=== PATIENT | male | born 1970 | race African-American/Black ===

== ENCOUNTER 2017-05-21 19:20 | Observation (INO) | payer OTHER ==
[2017-05-21 22:05] LABS: Hematocrit 45 % (42-52); Hemoglobin 15.9 g/dl (14.0-18.0); Mean Corpuscular HGB Conc 35 g/dl (31-36); Mean Corpuscular Hemoglobin 34 pg (27-31); Mean Corpuscular Volume 96 fL (80-94); Mean Platelet Volume 9 um3 (7.4-10.4); Red Cell Distribution Width 12 % (10.5-15); White Blood Count 10.1 10^3/ul (3.5-10.8)
[2017-05-21 22:12] LABS: Urine Bilirubin Negative (Negative); Urine Glucose Negative (Negative); Urine Nitrite Negative (Negative)
[2017-05-21 22:20] LABS: Albumin 4.6 g/dL (3.2-5.2); BUN/Creatinine Ratio 8.8 (8-20); Calcium 9.5 mg/dL (8.6-10.3); EGFR African American 89.5 (>60); EGFR Non-African American 69.6 (>60); Globulin 2.9 g/dL (2-4); Potassium 3.7 mmol/L (3.5-5.0); Total Bilirubin 0.8 mg/dL (0.2-1.0); Total Protein 7.5 g/dL (6.4-8.9)
[2017-05-21] MEDS ORDERED: Iohexol 350* (CONTRAST) 500 ML MDV IV ONE (23:34)
[2017-05-21] MEDS ORDERED: Acetaminophen TAB* 325 MG PO PRN (23:41)
[2017-05-21] MEDS ORDERED: Melatonin (NF) 3 MG TAB PO PRN (23:42)
[2017-05-21] MEDS ORDERED: Ondansetron INJ* 2 MG/ML VIAL IV PRN (23:42)
[2017-05-21] MEDS ORDERED: Aspirin Low Dose CHEW TAB* 81 MG PO ONE (23:42)
[2017-05-21] MEDS ORDERED: NS 0.9% 1000 ML* 1,000 ML IV SCH (23:45)
--- NOTE | 2017-05-22 | HP ---
H&P (Free Text) History and Physical: PCP: Cong Stiles MD of [place], [place] Date/Time: 05/22/2017 2320 CC: numbness HPI: MR Chet is a 47YO mal HX HTN presents reporting onset Wednesday of a mild/ moderate headache. Wednesday he felt his gait was off and unsteady, but denies focal W/N/T. He was seen at an urgent care and diagnosed with vertigo. he developed N/T of the L side of his head, L arm, and L leg, but not all at the same time, rather migratory. He denies focal weakness, change in speech/ swallow/vision, change in bowel bladder, F/C, cough, congestion, or other issues. He searched online and became concerned after reading about TIA and decided to present to [facility] ED for evaluation. 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 Brother: passed at 49 of pulmonary embolism ROS: as above, otherwise reviewed and all were negative vitals: Vital Signs Temp 36.7 C 05/21/17 19:24 Pulse 71 05/21/17 23:20 Resp 13 05/21/17 23:20 BP 152/96 05/21/17 23:20 Pulse Ox 95 05/21/17 23:20 Intake & Output 05/21/17 05/21/17 05/22/17 11:59 23:59 11:59 Weight 92.533 kg Constitutional: NAD, normally developed, overweight black male HEENM: atraumatic; sclera/conjunctiva: anicteric/clear; hearing: clinically intact; oropharynx: clear, mucosa moist Neck: soft tissue: non-tender; thyroid: normal Pulmonary: clear to auscultation bilaterally, good aeration, no accessory muscle use CV: RR/RR, normal S1S2, no carotid bruit, no jugular venous distention, 2+ B DP/ PT, no edema Abdominal: soft, non-distended, non-tender, no rebound/guarding/rigidity, normoactive bowel sounds, no hepatosplenomegaly or masses, no costovertebral angle tenderness Musculoskeletal: general: grossly intact, no palpable tenderness, negative Sunny 's Integumental: normal appearance and texture of exposed skin Neurological cranial nerves II: visual garcia tested & intact III/IV/: symmetric light reflex, EOMI/PERRLA V: intact facial sensation & mastication VII: intact facial symmetry & eye clench VIII: hearing clinically intact IX/X: symmetric palatal motion, no dysarthria XII: midline tongue protrusion, normal voice articulation motor LUE: 4+/5 proximally, distally, & painter assistant strength RUE: 4+/5 proximally, distally, & painter assistant strength LLE: 4+/5 proximally & distally RLE: 4+/5 proximally & distally coordination finger/nose: intact, symmetric heal/ulloa: intact, symmetric dysdiadochokinesia: none sensory crude touch: intact globally pinprick: intact globally vibration: intact globally proprioception: intact globally DTRs biceps: 2+ B triceps: 2+ B brachioradialis: 2+ B patellar: 2+ B Achilles: 1+ B Babinski: downgoing B Psychiatric orientation: AA&O to PPS affect: calm mood: cooperative eye contact: good content: reliable responses: timely insight: good Testing: Lab Results 05/21/17 05/21/17 05/21/17 Range/Units 21:57 21:57 21:57 WBC 10.1 (3.5-10.8) 10^3/ul RBC 4.70 (4.0-5.4) 10^6/ul Hgb 15.9 (14.0-18.0) g/dl Hct 45 (42-52) % MCV 96 H (80-94) fL MCH 34 H (27-31) pg MCHC 35 (31-36) g/dl RDW 12 (10.5-15) % Plt Count 259 (150-450) 10^3/ul MPV 9 (7.4-10.4) um3 Neut % (Auto) 72.3 (38-83) % Lymph % (Auto) 20.3 L (25-47) % [place] % (Auto) 5.2 (1-9) % Eos % (Auto) 1.4 (0-6) % Baso % (Auto) 0.8 (0-2) % Absolute Neuts (auto) 7.3 (1.5-7.7) 10^3/ul Absolute Lymphs (auto) 2.1 (1.0-4.8) 10^3/ul Absolute Monos (auto) 0.5 (0-0.8) 10^3/ul Absolute Eos (auto) 0.1 (0-0.6) 10^3/ul Absolute Basos (auto) 0.1 (0-0.2) 10^3/ul Absolute Nucleated RBC 0.01 10^3/ul Nucleated RBC % 0.1 INR (Anticoag Therapy) 0.96 (0.89-1.11) APTT 28.4 (26.0-36.3) seconds Sodium 138 (133-145) mmol/L Potassium 3.7 (3.5-5.0) mmol/L Chloride 104 (101-111) mmol/L Carbon Dioxide 28 (22-32) mmol/L Anion Gap 6 (2-11) mmol/L BUN 10 (6-24) mg/dL Creatinine 1.13 (0.67-1.17) mg/dL Est GFR ( Amer) 89.5 (>60) Est GFR (Non-Af Amer) 69.6 (>60) BUN/Creatinine Ratio 8.8 (8-20) Glucose 102 H (70-100) mg/dL Calcium 9.5 (8.6-10.3) mg/dL Total Bilirubin 0.80 (0.2-1.0) mg/dL AST 15 (13-39) U/L ALT 14 (7-52) U/L Alkaline Phosphatase 58 (34-104) U/L Troponin I 0.00 (<0.04) ng/mL Total Protein 7.5 (6.4-8.9) g/dL Albumin 4.6 (3.2-5.2) g/dL Globulin 2.9 (2-4) g/dL Albumin/Globulin Ratio 1.6 (1-3) Urine Color Urine Appearance Urine pH (5-9) Ur Specific [place] (1.010-1.030) Urine Protein (Negative) Urine Ketones (Negative) Urine Blood (Negative) Urine Nitrate (Negative) Urine Bilirubin (Negative) Urine Urobilinogen (Negative) Ur Leukocyte Esterase (Negative) Urine Glucose (Negative) 05/21/17 Range/Units 22:00 WBC (3.5-10.8) 10^3/ul RBC (4.0-5.4) 10^6/ul Hgb (14.0-18.0) g/dl Hct (42-52) % MCV (80-94) fL MCH (27-31) pg MCHC (31-36) g/dl RDW (10.5-15) % Plt Count (150-450) 10^3/ul MPV (7.4-10.4) um3 Neut % (Auto) (38-83) % Lymph % (Auto) (25-47) % [place] % (Auto) (1-9) % Eos % (Auto) (0-6) % Baso % (Auto) (0-2) % Absolute Neuts (auto) (1.5-7.7) 10^3/ul Absolute Lymphs (auto) (1.0-4.8) 10^3/ul Absolute Monos (auto) (0-0.8) 10^3/ul Absolute Eos (auto) (0-0.6) 10^3/ul Absolute Basos (auto) (0-0.2) 10^3/ul Absolute Nucleated RBC 10^3/ul Nucleated RBC % INR (Anticoag Therapy) (0.89-1.11) APTT (26.0-36.3) seconds Sodium (133-145) mmol/L Potassium (3.5-5.0) mmol/L Chloride (101-111) mmol/L Carbon Dioxide (22-32) mmol/L Anion Gap (2-11) mmol/L BUN (6-24) mg/dL Creatinine (0.67-1.17) mg/dL Est GFR ( Amer) (>60) Est GFR (Non-Af Amer) (>60) BUN/Creatinine Ratio (8-20) Glucose (70-100) mg/dL Calcium (8.6-10.3) mg/dL Total Bilirubin (0.2-1.0) mg/dL AST (13-39) U/L ALT (7-52) U/L Alkaline Phosphatase (34-104) U/L Troponin I (<0.04) ng/mL Total Protein (6.4-8.9) g/dL Albumin (3.2-5.2) g/dL Globulin (2-4) g/dL Albumin/Globulin Ratio (1-3) Urine Color Yellow Urine Appearance Clear Urine pH 6.0 (5-9) Ur Specific [place] 1.010 (1.010-1.030) Urine Protein Negative (Negative) Urine Ketones Negative (Negative) Urine Blood Negative (Negative) Urine Nitrate Negative (Negative) Urine Bilirubin Negative (Negative) Urine Urobilinogen Negative (Negative) Ur Leukocyte Esterase Negative (Negative) Urine Glucose Negative (Negative) ECG, personally reviewed: NSR rate 77, no ischemia CT brain WO, personally reviewed: FINDINGS: No detectable infarct. Please note that infarcts less than 6 hours from onset may not be detectable on CT. No hemorrhage. No mass. No edema, shift, or herniation. Osseous structures are intact. CTA head/neck: ordered/pending Impression: 47M presenting with TIA-like symptoms DIAGNOSIS & PLAN Primary concern for TIA : current NIH is zero : telemetry : neurochecks : supplemental oxygen : check lipids in AM : patient to await CTA head/neck result in ED in case need for transfer identified : MRI brain WO in AM for further symptoms vs outpatient if no issues overnight : ECHO in AM for further symptoms or telemetry findings vs outpatient if no issues overnight : add TSH to ED lab draw : supportive care Secondary HTN : monitor, consider amlodipine for control, if indicated Admission Rational: CDU observation for TIA evaluation DVTp: SCDs while in bed Code Status: full HCP:
--- NOTE | 2017-05-22 00:50 | ED ---
Ananda Roman Rebecca, scribed for Miguel Hightower on 05/21/17 at 2112 . Neurological HPI - HPI Summary HPI Summary: Pt is a 47 y/o M who presents to ED c/o L-sided tingling. Starting yesterday, the pt has been experiencing intermittent episodes of L-sided tingling that was previously the entire side of the body though now sx are described as being located in the L temporal region. Pt is unsure of how long episodes last, stating "not long at all" though unable to give an exact length of time. Sx aggravated and alleviated by nothing. Pt additionally notes a MOTA with dizziness 3 days ago which have both resolved. Denies CP, SOB, abdominal pain, sore throat , ear pain. No recent infections. Was evaluated at urgent Care 2 days ago where he was D/C to home with Dx of vertigo without any medications. - History of Current Complaint Chief Complaint: EDNeurologicalDeficit Stated Complaint: NUMBNESS ON LT SIDE Time Seen by Provider: 05/21/17 21:10 Hx Obtained From: Patient Onset/Duration: Still Present Current Severity: None Pain Intensity: 0 Pain Scale Used: 0-10 Numeric Character: Numbness/Tingling - L-sided temporal Aggravating: Nothing Alleviating: Nothing Associated Signs and Symptoms: Positive: Headache - resolved, Dizziness - resolved - Allergy/Home Medications Allergies/Adverse Reactions: Allergies Allergy/AdvReac Type Severity Reaction Status Date / Time No Known Allergies Allergy Verified 05/21/17 19:29 Home Medications: Home Medications Multiple Vitamins W/ Minerals [Multivitamin Adults] 1 tab PO DAILY 05/22/17 [ History Confirmed 05/22/17] PMH/Surg Hx/FS Hx/Imm Hx Endocrine/Hematology History: Denies: Hx Diabetes Cardiovascular History: Reports: Hx Hypertension - Is not on medications - advised to decrease sodium intake Infectious Disease History: No Infectious Disease History: Denies: Traveled Outside the [place] in Last 30 Days - Family History Known Family History: Positive: Hypertension - Social History Alcohol Use: Occasionally Substance Use Type: Reports: None Smoking Status (MU): Never Smoked Tobacco Review of Systems Negative: Sore Throat, Ear Ache Negative: Chest Pain Negative: Shortness Of Breath Negative: Abdominal Pain Neurological: Other - dizziness - resolved Positive: Headache - resolved All Other Systems Reviewed And Are Negative: Yes Physical Exam - Summary Physical Exam Summary: Appearance: Well appearing, no pain distress Skin: warm, dry, reflects adequate perfusion Head/face: normal Eyes: EOMI, FLORINDA ENT: normal Neck: supple, nontender Respiratory: CTA, breath sounds present Cardiovascular: RRR, pulses symmetrical Abdomen: nontender, soft Bowel: present Musculoskeletal: normal, strength/ROM intact Neuro: normal, sensory motor intact, A&Ox3 GCS: 15 Triage Information Reviewed: Yes Vital Signs On Initial Exam: Initial Vitals Temp Pulse Resp BP Pulse Ox 98.1 F 82 14 180/97 98 05/21/17 19:24 05/21/17 19:24 05/21/17 19:24 05/21/17 19:24 05/21/17 19:24 Vital Signs Reviewed: Yes - Cassi Coma Scale Best Eye Response: 4 - Spontaneous Best Motor Response: 6 - Obeys Commands Best Verbal Response: 5 - Oriented Coma Scale Total: 15 Diagnostics - Vital Signs Vital Signs Temp Pulse Resp BP Pulse Ox 05/21/17 21:00 84 18 151/85 94 05/21/17 20:30 78 9 155/87 95 05/21/17 20:00 84 21 153/96 96 05/21/17 19:57 84 20 97 05/21/17 19:55 162/96 05/21/17 19:24 98.1 F 82 14 180/97 98 - Laboratory Result Diagrams: 05/21/17 21:57 05/21/17 21:57 Lab Statement: Any lab studies that have been ordered have been reviewed, and results considered in the medical decision making process. - CT Brain CT CT Interpretation: No Acute Changes - No detectable infarct. Please note that infarcts less than 6 hours frm onset may not be detectable on CT. No hemorrhage. No mass. No edema shift or herniation. Osseous structures are intact. ED physician reviewed radiology report and agrees. CT Interpretation Completed By: Radiologist - EKG 2159 Cardiac Rate: NL - 77 bpm EKG Rhythm: Sinus Rhythm EKG Interpretation: No acute changes NIH Scale - NIH Scale Level of Consciousness: Alert/Keenly Responsive Ask Patient the Month and His/Her Age: Both Correct Ask Pt to Open/Close Eyes and [employer]/Release Non-Paretic Hand: Both Correctly Best Gaze (Only Horizontal Eye Movement): Normal Visual Field Testing: No Visual Loss Facial Paresis-Pt to Smile & Close Eyes or Grimace Symmetry: Normal/Symmetrical Motor Function - Right Arm: No Drift-Holds 10 Seconds Motor Function - Left Arm: No Drift-Holds 10 Seconds Motor Function - Right Leg: No Drift-Holds 10 Seconds Motor Function - Left Leg: No Drift-Holds 10 Seconds Limb Ataxia-Must be out of Proportion to Weakness Present: Absent Sensory (Use Pinprick to Test Arms/Legs/Trunk/Face): Normal Best Language (Describe Picture, Name Items): No Aphasia Dysarthria (Read Several Words): Normal Extinction and Inattention: No Abnormality Total Score: 0 Course/Dx - Course Assessment/Plan: Pt is a 47 y/o M who presents to ED c/o L-sided tingling. Starting yesterday, the pt has been experiencing intermittent episodes of L- sided tingling that was previously the entire side of the body though now sx are described as being located in the L temporal region. Pt is unsure of how long episodes last, stating "not long at all." Pt additionally notes a MOTA with dizziness 3 days ago which have both resolved. Denies CP, SOB, abdominal pain, sore throat, ear pain. No recent infections. Was evaluated at urgent Care 2 days ago where he was D/C to home with Dx of vertigo without any medications. Brain CT reveals no acute findings. EKG is sinus rhythm with no acute changes. Discussed care of pt with Dr. Vallecillo who accepts pt for admission. Pt will be admitted with Dx of TIA. He understands and agrees. Elevated BP noted. - Diagnoses Provider Diagnoses: TIA (transient ischemic attack) - Physician Notifications Discussed Care Of Patient With: Carlos Vallecillo Time Discussed With Above Provider: 00:42 Instructed by Provider To: Other - Accepts pt for admission. Discharge - Discharge Plan Condition: Stable Disposition: ADMITTED TO Health system documentation as recorded by the Ananda marte Rebecca accurately reflects the service I personally performed and the decisions made by me, Miguel Hightower.
[2017-05-22 02:03] LABS: TSH (Thyroid Stimulating Horm) 1.03 mcIU/mL (0.34-5.60)
[2017-05-22 05:54] LABS: EGFR African American 90.4 (>60); EGFR Non-African American 70.3 (>60)
[2017-05-22 05:55] LABS: HDL Cholesterol 35.1 mg/dL
[2017-05-22] MEDS ORDERED: Heparin VIAL(*) 5000 UNITS/ML VIAL (FIVE THOUSAND) SUBCUT SCH (06:00)
[2017-05-22] MEDS ORDERED: Omeprazole CAP* 20 MG PO SCH (06:00)
[2017-05-22 07:32] VITALS: BP 158/96
--- NOTE | 2017-05-22 08:06 | RAD ---
HISTORY: Stroke, TIA, numbness on left side COMPARISONS: None TECHNIQUE: Multiple contiguous axial CT scans were obtained of the head without intravenous contrast. FINDINGS: HEMORRHAGE/INFARCT: There is no hemorrhage or acute infarct. MASSES/SHIFT: There is no mass or shift. EXTRA-AXIAL SPACES: There are no extra-axial fluid collections. SULCI AND VENTRICLES: The sulci and ventricles are normal in size and position for the patient's stated age. Incidentally noted is a cavum septum pellucidum et vergae. CEREBRUM: There are no focal parenchymal abnormalities. BRAINSTEM: There are no focal parenchymal abnormalities. CEREBELLUM: There are no focal parenchymal abnormalities. VESSELS: The vessels are grossly normal. PARANASAL SINUSES: The paranasal sinuses are clear. ORBITS: The orbits are unremarkable. BONES AND SOFT TISSUE: No bone or soft tissue abnormalities are noted. OTHER: None IMPRESSION: NO ACUTE INTRACRANIAL PATHOLOGY.
--- NOTE | 2017-05-22 08:15 | RAD ---
HISTORY: TIA, stroke COMPARISONS: None TECHNIQUE: Multiple contiguous axial CT scans were obtained of the head and neck After the administration of nonionic intravenous contrast timed to the systemic arterial phase of contrast enhancement. Coronal and sagittal multiplanar reformations are submitted for review. Multiple 3-D maximum intensity projection reconstructions are also submitted for review. FINDINGS: CTA NECK: AORTIC ARCH: There is a normal three-vessel branching pattern of the aortic arch. There is no ostial or proximal stenosis of the cephalic great vessels. RIGHT VERTEBRAL ARTERY: The right vertebral artery is patent along its course, without stenosis. LEFT VERTEBRAL ARTERY: The left vertebral artery is patent along its course, without stenosis. DOMINANCE: The right vertebral artery is dominant. RIGHT COMMON CAROTID ARTERY: The right common carotid artery is patent. The right carotid bifurcation occurs at C4-C5 RIGHT INTERNAL CAROTID ARTERY: There is no right internal carotid artery stenosis by NASCET criteria. RIGHT EXTERNAL CAROTID ARTERY: The right external carotid artery is unremarkable. LEFT COMMON CAROTID ARTERY: The left common carotid artery is patent. The left carotid bifurcation occurs at C4-C5 LEFT INTERNAL CAROTID ARTERY: There is no left internal carotid artery stenosis by NASCET criteria. LEFT EXTERNAL CAROTID ARTERY: The left external carotid artery is unremarkable. VENOUS CIRCULATION: The venous system is unremarkable. SALIVARY GLANDS: The parotid glands, submandibular glands, sublingual glands are normal. NASAL CAVITY/NASOPHARYNX: The nasal cavity and nasopharynx are normal. ORAL CAVITY/OROPHARYNX: The oral cavity is obscured by streak artifact from dental amalgam. The visualized oral cavity and oropharynx are unremarkable. LARYNGEAL APPARATUS/HYPOPHARYNX: The laryngeal apparatus and hypopharynx are normal. UPPER AIRWAY/UPPER ESOPHAGUS: The visualized upper airway and esophagus are normal. LUNG APICES: The lung apices are clear. THYROID GLAND: The thyroid gland is normal. LYMPH NODES: There is no lymphadenopathy by size criteria. BONES AND SOFT TISSUES: No bone or soft tissue abnormalities are noted. CTA HEAD: INTRACRANIAL CIRCULATION: There is no aneurysm, vascular malformation, occlusion, or stenosis of the visualized intracranial circulation. The anterior communicating artery complex is clear. Bilateral posterior communicating arteries are identified. VENOUS CIRCULATION: The venous system is unremarkable. PERFUSION: There is no obvious parenchymal perfusion deficit. HEMORRHAGE/INFARCT: There is no hemorrhage or acute infarct. MASSES/SHIFT: There is no mass or shift. EXTRA-AXIAL SPACES: There are no extra-axial fluid collections. SULCI AND VENTRICLES: The sulci and ventricles are normal in size and position for the patient's stated age. Incidentally noted is a cavum septum pellucidum et vergae. CEREBRUM: There are no focal parenchymal abnormalities. BRAINSTEM: There are no focal parenchymal abnormalities. CEREBELLUM: There are no focal parenchymal abnormalities. PARANASAL SINUSES: The paranasal sinuses are clear. ORBITS: The orbits are unremarkable. BONES AND SOFT TISSUE: No bone or soft tissue abnormalities are noted. OTHER: There is no abnormal enhancement. IMPRESSION: 1. NO INTERNAL CAROTID ARTERY STENOSIS BY NASCET CRITERIA. 2. NO ANEURYSM, VASCULAR MALFORMATION, OCCLUSION, OR STENOSIS OF THE VISUALIZED INTRACRANIAL CIRCULATION. CPT II Codes: 3100F
[2017-05-22] MEDS ORDERED: Aspirin EC Low Dose* 81 MG TAB.EC PO SCH (09:00)
[2017-05-22] MEDS ORDERED: Docusate CAP* 100 MG PO SCH (09:00)
[2017-05-23] MEDS ORDERED: Heparin VIAL(*) 5000 UNITS/ML VIAL (FIVE THOUSAND) SUBCUT SCH (06:00)
--- NOTE | 2017-05-23 12:48 | DS ---
AMENDED REPORT NOW INCLUDES COSIGNER DESIGNATION - ESIGNED BEFORE ADJUSTMENT CC: New PCP DISCHARGE SUMMARY: DATE OF ADMISSION: 05/21/17 DATE OF DISCHARGE: 05/22/17 PRIMARY CARE PHYSICIAN: The patient has no primary care doctor at this time. MY ATTENDING WHILE IN THE HOSPITAL: Dr. Nory Patel * (DICTATED BY POONAM BARTHOLOMEW) PRIMARY DISCHARGE DIAGNOSIS: Transient ischemic attack. SECONDARY DISCHARGE DIAGNOSES: 1. Hyperlipidemia. 2. Hypertension. STUDIES DONE WHILE IN THE HOSPITAL: Brain CT read as no acute intracranial pathology. Head CTA read as no internal carotid artery stenosis, no aneurysm, vascular malformation, occlusion, or stenosis in the visualized intracranial circulation. MEDICATIONS ON DISCHARGE: 1. Multivitamin. 2. Aspirin 81 mg p.o. daily. 3. Lipitor 40 mg p.o. daily. 4. Amlodipine 2.5 mg p.o. daily. New medications at discharge: 1. Aspirin 81 mg p.o. daily. 2. Atorvastatin 40 mg p.o. daily. 3. Amlodipine 2.5 mg p.o. daily. HOSPITAL COURSE: This is a brief summary of the hospital course. For more details, please see the admission history and physical from Dr. Carlos Vallecillo from 05/21/17. In brief, the patient is a 47-year-old male with no significant known past medical history, who presented to the ED with 4 days of gait disturbance and 2 days of numbness and tingling on the left side of his head, left arm, and left leg that took a migratory course. There was no weakness, change in speech, or other neurological deficits. The patient was admitted for observation, neuro checks, and medical management. All of the patient's deficits were resolved by the morning. MRI was not available in the hospital today, so the patient was agreed to be discharged and follow up outpatient with the primary care provider to be determined to assess for risk factors such as atrial fibrillation and to have an MRI of his brain. The patient was found to be hyperlipidemic and hypertensive while in the hospital. The patient also had a glucose of 102 when he entered the hospital. It is unclear whether this was fasting or not. The patient had no other abnormalities in his lab work. The patient was found to have a brother who of pulmonary embolism at age 46. PHYSICAL EXAMINATION ON THE DAY OF DISCHARGE: General: The patient is a 47- year- old male, who appears stated age and sitting comfortably in the exam bed. Vital Signs: Temperature 98.6, pulse rate 79, respiratory rate 16, oxygen saturation 99% on room air, blood pressure 150/96. HEENT: Head , normocephalic, atraumatic. Eyes: Sclerae anicteric. No conjunctival injection. Mucous membranes are moist. Pharynx nonerythematous. Neck: Supple , nontender. No lymphadenopathy. No carotid bruit auscultation. Cardiac: Regular rate and rhythm. No clicks, murmurs, gallops, or rubs. Pulse is 2+ bilaterally in the posterior tibial, dorsalis pedis, and radial areas. Respiratory: Clear to auscultation bilaterally. No wheezes, rales, or rhonchi. Good air exchange bilaterally. Abdomen: Soft, nontender, nondistended. Normal bowel sounds present in all 4 quadrants. No abdominal bruits auscultated. No hepatosplenomegaly. Skin: Clean, dry, and intact. Neuro: Alert and oriented x3. Pupils equal, round, and reactive to light. Extraocular movements intact. No sensory deficits on the face. [place] and temporalis muscles contract equal bilaterally. The patient was able to smile, frown, puff out cheeks, and close eyes without me being able open them. Hearing equal bilaterally. Equal elevation of the soft palate. Tongue protrudes to the midline. 5/5 strength with head rotation and shoulder shrug. 5/5 strength in the bilateral proximal and distal muscle groups of the upper and lower extremity. Sensation to light touch intact in the upper and lower extremities. Finger-to- nose performed without difficulty. Gait normal. No dysdiadochokinesis. Reflexes 1+ bilaterally in the biceps, quadriceps, and Achilles tendons. Psychiatric: The patient is pleasant and cooperative. LABORATORY DATA: While in the hospital, white blood cell count 10.1, hemoglobin 15.9, hematocrit 45, MCV 96, MCH 34, platelet count 259. INR 0.96, aPTT 28.4. Sodium 138, potassium 3.7, chloride 104, carbon dioxide 28, anion gap 6, BUN 10, creatinine 1.13, glucose 102, calcium 9.5. AST 15, ALT 14. Troponin I 0.00. Triglycerides 136, cholesterol 222, LDL cholesterol 160, HDL cholesterol 35. TSH 1.03. Urine benign. DISCHARGE PLAN: The patient has most likely had a transient ischemic attack, all of which resolved. The patient will be started on secondary prevention including aspirin daily, Lipitor 40 mg p.o. daily, and amlodipine 2.5 mg p.o. daily. The patient will follow up with his primary care doctor within a week. We will arrange an appointment for him on Wednesday when we are able. The patient should at that point undergo more extensive testing including Holter monitor, echocardiogram, hypercoagulability workup, hemoglobin A1c, and possible MRI of the brain. The patient has lost 18 pounds over the past several months. The patient should continue exercise for weight loss and activity as tolerated. The patient should have a low-fat, low-salt diet. The patient should return to the hospital for any new neurological deficits. TIME SPENT: Approximately 60 minutes was spent on this discharge, 40 of which was spent [id number] with the patient obtaining history and physical and discussing treatment options and explaining diagnoses. POONAM BARTHOLOMEW [id number]/[facility] #: [id number] [place]
== END 2017-05-22 11:15 | disposition home or self-care (01) ==
LOC: ED 19:20 → MEDTELE 23:21
PROVIDERS: ADMIT Hospitalist; ATTEND Internal Medicine
DX: G45.9 Transient cerebral ischemic attack, unspecified (principal); E78.5 Hyperlipidemia, unspecified; I10 Essential (primary) hypertension; R51 Headache; Z79.82 Long term (current) use of aspirin; Z79.899 Other long term (current) drug therapy; R94.31 Abnormal electrocardiogram [ECG] [EKG]
CPT/HCPCS: 36415; 70450; 70496; 70498; 80053; 80061; 81003; 82565; 84443; 84484; 84520; 85025; 85610; 85730; 93005; 96360; 96361; 96372; 99284; A9270-GY; G0378; J1644; Q9967

== ENCOUNTER → 2017-05-27 12:27 | Emergency (ER) | payer OTHER ==
[2017-05-27 16:31] VITALS: BP 164/92
--- NOTE | 2017-05-29 18:26 | ED ---
Dawood Roman Alfonso, scribed for Paulie Oliveira MD on 05/27/17 at 1550 . Complex/Multi-Sys Presentation - HPI Summary HPI Summary: This patient is a 47 year old M presenting to [facility] accompanied by with a chief complaint of left posterior head tingling since last night. The patient rates the pain 0/10 in severity. Symptoms aggravated by nothing. Symptoms alleviated by spontaneous resolution. Patient reports insomnia, anxiety, and dizziness (improved). Patient denies CP, SOB, and palpitations. - History Of Current Complaint Chief Complaint: EDDizziness Time Seen by Provider: 05/27/17 15:29 Hx Obtained From: Patient Onset/Duration: Sudden Onset, Lasting Days - last night, Still Present Timing: Constant Aggravating Factor(s): nothing Alleviating Factor(s): spontaneous resolution Associated Signs And Symptoms: Positive: Other - insomnia, anxiety, and dizziness (improved). Patient denies CP, SOB, and palpitations. - Allergies/Home Medications Allergies/Adverse Reactions: Allergies Allergy/AdvReac Type Severity Reaction Status Date / Time No Known Allergies Allergy Verified 05/21/17 19:29 Home Medications: Home Medications Aspirin EC Low Dose* [Ecotrin EC Low Dose 81 MG*] 81 mg PO DAILY 05/27/17 [ History Confirmed 05/27/17] PMH/Surg Hx/FS Hx/Imm Hx Endocrine/Hematology History: Denies: Hx Diabetes Cardiovascular History: Reports: Hx Hypertension - Is not on medications - advised to decrease sodium intake History: Denies: Hx Renal Disease Sensory History: Denies: Hx Contacts or Glasses, Hx Hearing Aid Opthamlomology History: Denies: Hx Contacts or Glasses - Surgical History Surgery Procedure, Year, and Place: Hernia Repair Infectious Disease History: No Infectious Disease History: Denies: Traveled Outside the [place] in Last 30 Days - Family History Known Family History: Positive: Cardiac Disease - [place] father, Hypertension, Other - Negative CVA - Social History Alcohol Use: Occasionally Substance Use Type: Reports: None Smoking Status (MU): Never Smoked Tobacco Review of Systems Negative: Palpitations, Chest Pain Negative: Shortness Of Breath Neurological: Other - left posterior head tingling, insomnia, anxiety, and dizziness (improved) All Other Systems Reviewed And Are Negative: Yes Physical Exam - Summary Physical Exam Summary: VITAL SIGNS: Reviewed. GENERAL: Patient is a well-developed and nourished male who is lying comfortable in the stretcher. Patient is not in any acute respiratory distress. HEAD AND FACE: No signs of trauma. No ecchymosis, hematomas or skull depressions. No sinus tenderness. EYES: PERRLA, EOMI x 2, No injected conjunctiva, no nystagmus. No photophobia. EARS: Hearing grossly intact. Ear canals and tympanic membranes are within normal limits. MOUTH: Oropharynx within normal limits. NECK: Supple, trachea is midline, no adenopathy, no JVD, no carotid bruit, no c- spine tenderness, neck with full ROM. No meningeal signs, no Kernig's or brudzinskis signs. CHEST: Symmetric, no tenderness at palpation LUNGS: Clear to auscultation bilaterally. No wheezing or crackles. CVS: Regular rate and rhythm, S1 and S2 present, no murmurs or gallops appreciated. ABDOMEN: Soft, non-tender. No signs of distention. No rebound no guarding, and no masses palpated. Bowel sounds are normal. EXTREMITIES: FROM in all major joints, no edema, no cyanosis or clubbing. NEURO: Alert and oriented x 3. No acute neurological deficits. Speech is normal and follows commands. See NIH scale. SKIN: Dry and warm GCS: 15 Triage Information Reviewed: Yes Vital Signs On Initial Exam: Initial Vitals Temp Pulse Resp BP Pulse Ox 98.1 F 98 17 163/118 98 05/27/17 12:32 05/27/17 12:32 05/27/17 12:32 05/27/17 12:32 05/27/17 12:32 Vital Signs Reviewed: Yes Diagnostics - Vital Signs Vital Signs Temp Pulse Resp BP Pulse Ox 05/27/17 14:54 97.6 F 81 16 147/87 98 05/27/17 12:32 98.1 F 98 17 163/118 98 - Laboratory Lab Statement: Any lab studies that have been ordered have been reviewed, and results considered in the medical decision making process. National Institutes Of Health - NIH Scale Level of Consciousness: Alert/Keenly Responsive Ask Patient the Month and His/Her Age: Both Correct Ask Pt to Open/Close Eyes and Corporate Development Manager/Release Non-Paretic Hand: Both Correctly Best Gaze (Only Horizontal Eye Movement): Normal Visual Field Testing: No Visual Loss Facial Paresis-Pt to Smile & Close Eyes or Grimace Symmetry: Normal/Symmetrical Motor Function - Right Arm: No Drift-Holds 10 Seconds Motor Function - Left Arm: No Drift-Holds 10 Seconds Motor Function - Right Leg: No Drift-Holds 10 Seconds Motor Function - Left Leg: No Drift-Holds 10 Seconds Limb Ataxia-Must be out of Proportion to Weakness Present: Absent Sensory (Use Pinprick to Test Arms/Legs/Trunk/Face): Normal Best Language (Describe Picture, Name Items): No Aphasia Dysarthria (Read Several Words): Normal Extinction and Inattention: No Abnormality Total Score: 0 Complex Multi-Symp Course/Dx Assessment/Plan: This patient is a 47 year old M presenting to [facility] accompanied by with a chief complaint of left posterior head tingling since last night. The patient rates the pain 0/10 in severity. Symptoms aggravated by nothing. Symptoms alleviated by spontaneous resolution. Patient reports insomnia, anxiety, and dizziness (improved). Patient denies CP, SOB, and palpitations. Normal physical exam. His symptoms resolved in triage .He had a full work up a few days prior with blood work, EKG, CXR, and CTA head which all were negative. The patient was diagnosed with HTN and TIA. The patient was discharge with anti-hypertensive medication and Dr. Sierra follow up for Wednesday. The patient reports he is having a hard time adjusting to the new diagnosis and he becomes slightly anxious. The patient and his think the symptoms are secondary to anxiety. I consulted Dr. Marcum (neurologist) at 1603 who recommends discharge and outpatient MRI. Since the patient is asymptomatic an emergent MRI is not indicated. Therefore, I discussed the finding and plan with the patient. He was instructed to return immediately to the ED for weakness , change in mental status, slurred speech, and any other symptoms. He understands and agrees. The patient is hemodynamically stable and alert and oriented x3. - Diagnoses Provider Diagnoses: Dizziness, Anxiety - Physician Notifications Discussed Care Of Patient With: Mariela Marcum Time Discussed With Above Provider: 16:03 Instructed by Provider To: Other - Consulted Dr. Marcum (neurologist) at 1603 who recommends discharge and outpatient MRI. Discharge - Discharge Plan Condition: Stable Disposition: HOME Patient Education Materials: Dizziness (ED), Anxiety (ED) Referrals: Diana Sierra MD [Primary Care Provider] - 3 Days Mariela Marcum MD [Medical Doctor] - Additional Instructions: RETURN TO THE EMERGENCY DEPARTMENT FOR CHANGING OR WORSENING SYMPTOMS. The documentation as recorded by the Dawood marte Alfonso accurately reflects the service I personally performed and the decisions made by , Paulie Oliveira MD.
== END | disposition home or self-care (01) ==
LOC: ED 12:27
DX: R42 Dizziness and giddiness (principal); F41.9 Anxiety disorder, unspecified; G47.00 Insomnia, unspecified; I10 Essential (primary) hypertension; Z79.82 Long term (current) use of aspirin
CPT/HCPCS: 99284

== ENCOUNTER 2019-10-30 06:10 | Day surgery (SDC) | payer BC, OTHER ==
--- NOTE | 2019-10-23 22:38 | HP ---
CC: Dr. Diana Sierra * HISTORY AND PHYSICAL: DATE OF PLANNED ADMISSION AND SURGERY: 10/30/19 HISTORY OF PRESENT ILLNESS: Mr. Rosenberg is a 49-year-old white male who is admitted with symptomatic bilateral hydroceles for surgical repair. About 5 years ago, Mr. Rosenberg had scrotal trauma that resulted in bilateral scrotal swelling. The swelling slowly improved; however, it did not completely resolve. Over the last several months, he has noted progressive enlargement of both testes, more so on the left side. He had a scrotal ultrasound ordered by Dr. Sierra. The study showed bilateral simple hydroceles, more pronounced on the left side. The testes looked normal. I saw him in my office about 4 months ago, and at that time, the examination showed bilateral simple hydroceles. He did not have any hernias and the hydrocele size did not change with the patient's position or level of activities. Because he was not too symptomatic, he was observed. Recently the patient noted that the condition has become more bothersome interfering with his physical activities. With the above history and the symptomatic nature of the hydroceles, the patient is admitted for surgical repair. Past history is otherwise negative. He denies any history of any voiding symptoms. No past history of scrotal swelling or pain. PAST MEDICAL HISTORY: He is hypertensive, maintained on amlodipine 5 mg daily. He is on 1 baby aspirin per day, which will be discontinued preoperatively. He denies any cardiac or pulmonary diseases or symptoms. He denies any allergies to medications. FAMILY HISTORY: Father has a history of coronary artery disease. No history of prostate cancer. 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 He is a nonsmoker. He denies any recreational drug use. Phycological and mental history are negative. PHYSICAL EXAMINATION GENERAL: Pleasant, healthy, and fit looking male. VITAL SIGNS: Blood pressure 120/80, pulse of 80. LUNGS: Clear. HEART: Regular and rhythmic. No murmurs. ABDOMEN: Soft, no masses, no tenderness, and no CVA tenderness. EXTERNAL GENITALIA: Circumcised. No penile lesions. There is bilateral scrotal swelling, larger and tense on the left, measuring about 10 cm to 12 cm on the left and about 8 cm to 10 cm on the right. Both scrotal swellings transilluminate freely. He has no inguinal hernias. The hydroceles could not be decompressed by manual pressure. IMPRESSION: Bilateral simple and symptomatic hydroceles. PLAN: Plan is for bilateral hydrocelectomies. I discussed the operation in detail with the patient. Some of potential complications including infection, hematoma were discussed. The patient also understands that he will have scrotal swelling that will continue for several weeks postoperatively. All his questions were answered. [id number]/[facility] #: [id number] [place]
[~2019-10-30 06:10] MED LIST: Buffered Lidocaine 1% SYRIN* 1 ML/SYRINGE INTRADERM ONE; Famotidine IV* 10 MG/ML 2 ML (20 mg) IV ONE; Lactated Ringers 1000 ML Bag* 1,000 ML IV SCH
[2019-10-30] MEDS ORDERED: Famotidine IV* 10 MG/ML 2 ML (20 mg) ONE (06:45)
[2019-10-30] MEDS ORDERED: ceFAZolin 2 GM PREMIX in ORs 2 GM/50 ML BAG ONE (06:45)
[2019-10-30] MEDS ORDERED: Bupivacaine 0.5%* 50 ML MDV VIAL ONE (07:14)
[2019-10-30] MEDS ORDERED: Propofol* 1,000 MG/100 ML BTL ONE (07:45)
[2019-10-30] MEDS ORDERED: Naloxone* 0.4 MG/ML 1 ML VIAL IV PRN (08:58)
[2019-10-30] MEDS ORDERED: oxyCODONE TAB* 5 MG TAB PO PRN (08:58)
[2019-10-30] MEDS ORDERED: Ondansetron INJ* 2 MG/ML VIAL IV PRN (08:58)
[2019-10-30] MEDS ORDERED: HYDROmorphone INJ1* 1 MG/ML SYRINGE ONE (09:30)
[2019-10-30] MEDS: HYDROmorphone INJ1* 1 MG/ML SYRINGE IV PRN ×2 (09:30→09:47)
[2019-10-30] MEDS ORDERED: oxyCODONE TAB* 5 MG TAB ONE (09:37)
--- NOTE | 2019-10-30 10:45 | OP ---
CC: Dr. Diana Sierra * DATE OF OPERATION: 10/30/19 - [facility] DATE OF : 70 SURGEON: Carlito Tinoco MD ANESTHESIOLOGIST: Dr. Acosta. ANESTHESIA: Spinal. PRE-OP DIAGNOSIS: Bilateral hydrocele. POST-OP DIAGNOSIS: Bilateral hydrocele. OPERATIVE PROCEDURE: Bilateral hydrocelectomies. INDICATION FOR PROCEDURE: Mr. Rosenberg is a 49-year-old male, who had progressive bilateral scrotal enlargement that started several years ago following scrotal trauma, and had increased recently. It became significantly symptomatic interfering with his physical activities. Physical examination and scrotal ultrasounds confirmed the presence of bilateral hydroceles, larger, and more tense on the left side. No associated inguinal hernias. Because of the size of the hydroceles, their symptomatic nature, and after discussing the options of management, surgical repair was advised and accepted. PATHOLOGY: Exam under anesthesia again showed a 10 to 12 cm left hydrocele and an 8 to 10 cm right hydrocele. Upon left scrotal exploration, the hydrocele fluid draw was straw colored. A total of 240 cc of hydrocele fluid were drained. The testicle looked and felt normal. No inguinal hernia noted. The hydrocele sac was thin and no lesions were noted on it. No testicular masses felt. The findings on the right side were similar except the hydrocele fluid was only 60 cc. DESCRIPTION OF PROCEDURE: After successful spinal anesthesia supplemented with intravenous sedation, the patient was prepped and draped for scrotal exploration. A longitudinal incision was carried over the anterior median raphe of the scrotum. The left scrotal compartment was then entered. The hydrocele sac was delivered through the incision. The sac was then incised and the hydrocele fluid was drained. The hydrocele sac was then trimmed and sent for pathology. The hydrocele sac was then everted and approximated to itself using a running locking suture of 4-0 Vicryl. Care was taken not to tighten the spermatic cord. Good hemostasis was achieved. The testicle was then replaced in the scrotal cavity. Identical procedure was performed on the right side except that the hydrocele sac did not need to be trimmed. After making sure there was good hemostasis, both testes were replaced in their respective scrotal cavities making sure there was no twisting of the cords. A Constanza drain was left in each scrotal cavity and brought out through a separate stab wound incision in the dependent portion of the scrotum. The Constanza drains were transfixed to the skin with Prolene sutures. The scrotal incision was then closed using a running locking suture of 4-0 Vicryl. A total of 10 cc of 0.5% Marcaine without epinephrine were used to infiltrate the incision for postoperative analgesia. The skin was closed using interrupted everting sutures of 4-0 chromic. The final result looked satisfactory. Supporting dressing was applied. The patient tolerated the procedure well and left the operating room in good condition. The blood loss was negligible. The specimen was portion of left hydrocele sac. All the counts were correct. [id number]/[facility] #: [id number] [facility]ENTERTimothy
[2019-10-30 10:58] VITALS: BP 142/68
== END 2019-10-30 10:50 | disposition home or self-care (01) ==
LOC: OR 06:10
PROVIDERS: ATTEND Urology
DX: N43.3 Hydrocele, unspecified (principal); I10 Essential (primary) hypertension
CPT/HCPCS: 62323; 88302; A9270-GY; J0690; J1170; J2704; J3490